=== PATIENT | male | born 1945 | race Caucasian/White ===

== ENCOUNTER 2017-09-11 15:58 | Inpatient (IN) | payer MEDICARE, MEDICAID ==
[~2017-09-11] VITALS: Ht 182.9 cm; Wt 82.6 kg
[2017-09-11 17:25] LABS: BASOPHILS % 1.1 % (0.0-2.0); EOSINOPHILS % 4.3 % (0.0-5.0); LYMPHOCYTES % 15.5 % (20.0-50.0); MEAN CORPUSCULAR HEMOGLOBIN 30.5 pg (28.0-32.0); MEAN PLATELET VOLUME 7.6 fl (7.4-10.4); MONOCYTES % 8.7 % (2.0-8.0); NEUTROPHILS % 70.4 % (40.0-76.0); PLATELET 199 x1000/uL (130-400); RED BLOOD CELL COUNT 3.94 mill/uL (4.7-6.1); RED CELL DISTRIBUTION WIDTH 16.2 % (11.6-14.6)
[2017-09-11 17:30] LABS: INR 1.1; PROTHROMBIN TIME 11.4 sec (9.4-11.6)
[2017-09-11 17:39] LABS: TROPONIN I 0.03 ng/mL (0.00-0.04)
[2017-09-11] MEDS ORDERED: FUROSEMIDE 40MG/4ML VIAL IVP ONE (19:30)
[2017-09-11 22:00] VITALS: BP 183/78
[2017-09-11] MEDS: SODIUM CHLORIDE 0.9% INJ 3ML FLUSH IVF SCH (22:00)
[2017-09-11] MEDS ORDERED: ONDANSETRON HCL 4MG/2ML VIAL IV PRN (22:15)
[2017-09-11] MEDS ORDERED: MAGNESIUM/ALUMINUM HYDROXIDE/SIMETHICONE 30ML UDC PO PRN (22:15)
[2017-09-11] MEDS ORDERED: IPRATROPIUM/ALBUTEROL 0.5-3(2.5)MG/3ML NEB INH PRN (22:15)
[2017-09-11] MEDS ORDERED: CLONIDINE 0.1MG TABLET PO PRN (22:15)
[2017-09-11] MEDS ORDERED: DIPHENHYDRAMINE 50MG/ML VIAL IV PRN (22:15)
[2017-09-11] MEDS ORDERED: ACETAMINOPHEN 325MG TABLET PO PRN (22:15)
[2017-09-11 22:30] VITALS: BP 138/78
[2017-09-11] MEDS ORDERED: HYDRALAZINE 20MG/ML VIAL IV PRN (22:30)
[2017-09-11] MEDS ORDERED: DEXTROSE 50% WATER 50ML SYRINGE IV PRN (22:30)
[2017-09-12] VITALS (10 sets, daily range): BP systolic 130–173; BP diastolic 58–80
[2017-09-12] MEDS: NITROGLYCERIN OINT 1GM/INCH UDPKT TD SCH ×4 (00:13→21:36)
[2017-09-12] MEDS: SODIUM CHLORIDE 0.9% INJ 3ML FLUSH IVF SCH ×3 (06:23→21:35)
[2017-09-12] MEDS: BLOOD SUGAR DIAGNOSTIC STRIP TEST SCH ×4 (06:29→21:35)
[2017-09-12 06:40] LABS: BASOPHILS % 1.2 % (0.0-2.0); HEMATOCRIT. 31.3 % (42.0-52.0); HEMOGLOBIN. 10.8 g/dL (14.0-18.0); LYMPHOCYTES % 17.5 % (20.0-50.0); MEAN CORPUSCULAR HEMOGLOBIN 30.9 pg (28.0-32.0); MEAN CORPUSCULAR VOLUME 89.3 fL (80.0-94.0); MONOCYTES % 11.4 % (2.0-8.0); NEUTROPHILS % 65.9 % (40.0-76.0); PLATELET 178 x1000/uL (130-400); RED CELL DISTRIBUTION WIDTH 16.1 % (11.6-14.6)
[2017-09-12] MEDS: INSULIN LISPRO 100 UNITS/ML SUBCUT SCH ×4 (07:50→21:00)
[2017-09-12] MEDS: ENOXAPARIN 30MG/0.3ML SYR SUBCUT SCH (08:40)
[2017-09-12 08:42] LABS: CARBON DIOXIDE 30 mEq/L (21-32); CHLORIDE 95 mEq/L (98-107); PHOSPHORUS 4.5 mg/dL (2.5-4.9)
[2017-09-12] MEDS: FOLIC ACID/VITAMIN B COMP W-C TABLET PO SCH (08:57)
[2017-09-12] MEDS: CARVEDILOL 12.5MG TABLET PO SCH ×2 (08:59→21:35)
[2017-09-12] MEDS: LOSARTAN POTASSIUM 100 MG TABLET PO SCH (08:59)
[2017-09-12] MEDS ORDERED: ASPIRIN 81MG TABLET PO SCH (09:00)
[2017-09-12] MEDS ORDERED: IODIXANOL 320MG/ML 100 ML BOTTLE IV ONE (10:49)
[2017-09-12] MEDS ORDERED: LIDOCAINE HCL 1% 20ML VIAL (Pyxis) INJ ONE (10:50)
[2017-09-12] MEDS ORDERED: FENTANYL CITRATE/PF 50MCG/ML 2ML VIAL ONE (11:09)
[2017-09-12] MEDS ORDERED: MIDAZOLAM HCL 2 MG/2 ML VIAL ONE (11:09)
[2017-09-12] MEDS ORDERED: ASPIRIN/SOD BICARB/CITRIC ACID 324MG TAB EFF ONE (11:11)
[2017-09-12] MEDS ORDERED: MORPHINE SULFATE 4 MG/ML CPJ (NOT FOR IM USE) IV PRN (11:45)
[2017-09-12] MEDS ORDERED: ONDANSETRON HCL 4MG/2ML VIAL IV PRN (11:45)
[2017-09-12] MEDS ORDERED: ATROPINE SULFATE 1MG/10ML SYR IV PRN (11:45)
[2017-09-12] MEDS ORDERED: ACETAMINOPHEN 325MG TABLET PO PRN (11:45)
[2017-09-12] MEDS ORDERED: HEPARIN SODIUM 1,000 UNIT/1ML VIAL IV ONE (12:18)
[2017-09-12] MEDS ORDERED: NICARDIPINE 100MCG/ML 10ML VIAL (CATH LAB) IV ONE (12:18)
[2017-09-12] MEDS ORDERED: NITROGLYCERIN 50MCG/ML 10ML VIAL (CATH LAB) IV ONE (12:18)
[2017-09-12] MEDS: CALCIUM ACETATE 667MG CAPSULE PO SCH ×2 (12:50→17:20)
[2017-09-12] MEDS ORDERED: LOPERAMIDE HCL 2MG CAPSULE PO NR (20:45)
[2017-09-12] MEDS ORDERED: ATORVASTATIN CALCIUM 40MG TABLET PO SCH (21:00)
[2017-09-12] MEDS: TAMSULOSIN HCL 0.4MG SR CAPSULE PO SCH (21:35)
[2017-09-13] VITALS: BP 154/52
[2017-09-13 04:00] VITALS: BP 160/50
[2017-09-13] MEDS: SODIUM CHLORIDE 0.9% INJ 3ML FLUSH IVF SCH ×3 (06:45→21:36)
[2017-09-13] MEDS: NITROGLYCERIN OINT 1GM/INCH UDPKT TD SCH ×3 (06:45→21:36)
[2017-09-13] MEDS: BLOOD SUGAR DIAGNOSTIC STRIP TEST SCH ×4 (06:46→21:38)
[2017-09-13 07:12] LABS: EOSINOPHILS % 4.5 % (0.0-5.0); HEMATOCRIT. 30.1 % (42.0-52.0); HEMOGLOBIN. 10.3 g/dL (14.0-18.0); LYMPHOCYTES % 18.4 % (20.0-50.0); MEAN CORPUSCULAR HEMOGLOBIN 30.3 pg (28.0-32.0); MEAN CORPUSCULAR VOLUME 88.7 fL (80.0-94.0); MEAN PLATELET VOLUME 8.2 fl (7.4-10.4); MONOCYTES % 11.1 % (2.0-8.0); PLATELET 158 x1000/uL (130-400); RED BLOOD CELL COUNT 3.39 mill/uL (4.7-6.1); RED CELL DISTRIBUTION WIDTH 16.1 % (11.6-14.6)
[2017-09-13 07:42] LABS: TROPONIN I 0.04 ng/mL (0.00-0.04)
[2017-09-13] MEDS: INSULIN LISPRO 100 UNITS/ML SUBCUT SCH ×4 (07:50→21:35)
[2017-09-13 08:00] VITALS: BP 130/66
[2017-09-13] MEDS: ENOXAPARIN 30MG/0.3ML SYR SUBCUT SCH (09:00)
[2017-09-13] MEDS: CARVEDILOL 6.25 MG TABLET PO SCH ×2 (09:00→21:37)
[2017-09-13] MEDS: ASPIRIN 81MG EC TABLET PO SCH (09:10)
[2017-09-13] MEDS: FOLIC ACID/VITAMIN B COMP W-C TABLET PO SCH (09:10)
[2017-09-13] MEDS: CALCIUM ACETATE 667MG CAPSULE PO SCH ×3 (09:11→18:11)
[2017-09-13] MEDS: LOSARTAN POTASSIUM 100 MG TABLET PO SCH (09:12)
[2017-09-13] MEDS: OMEPRAZOLE 20MG CAPSULE EXTENDED RELEASE PO SCH (09:14)
[2017-09-13 12:00] VITALS: BP 128/64
[2017-09-13 16:00] VITALS: BP 156/78
[2017-09-13 20:00] VITALS: BP_SYST 160; BP_SYST 163; BP_DIAS 80; BP_DIAS 91
[2017-09-13] MEDS ORDERED: ATORVASTATIN CALCIUM 40MG TABLET PO SCH (21:00)
[2017-09-13] MEDS ORDERED: NIFEDIPINE XL 30MG TAB PO SCH (21:00)
[2017-09-13] MEDS: TAMSULOSIN HCL 0.4MG SR CAPSULE PO SCH (21:38)
[2017-09-14] VITALS: BP 138/57
[2017-09-14 04:00] VITALS: BP 152/66
[2017-09-14] MEDS: OMEPRAZOLE 20MG CAPSULE EXTENDED RELEASE PO SCH (06:03)
[2017-09-14] MEDS: NITROGLYCERIN OINT 1GM/INCH UDPKT TD SCH (06:04)
[2017-09-14] MEDS: SODIUM CHLORIDE 0.9% INJ 3ML FLUSH IVF SCH ×2 (06:04→12:31)
[2017-09-14 06:26] LABS: BASOPHILS % 0.8 % (0.0-2.0); EOSINOPHILS % 5.2 % (0.0-5.0); HEMATOCRIT. 31.1 % (42.0-52.0); HEMOGLOBIN. 10.6 g/dL (14.0-18.0); LYMPHOCYTES % 15.4 % (20.0-50.0); MEAN CORPUSCULAR HEMOGLOBIN 30.2 pg (28.0-32.0); MEAN CORPUSCULAR VOLUME 88.6 fL (80.0-94.0); MONOCYTES % 11.1 % (2.0-8.0); NEUTROPHILS % 67.5 % (40.0-76.0); PLATELET 157 x1000/uL (130-400); RED BLOOD CELL COUNT 3.51 mill/uL (4.7-6.1); RED CELL DISTRIBUTION WIDTH 15.9 % (11.6-14.6)
[2017-09-14] MEDS: BLOOD SUGAR DIAGNOSTIC STRIP TEST SCH ×2 (06:44→12:04)
[2017-09-14] MEDS: INSULIN LISPRO 100 UNITS/ML SUBCUT SCH ×2 (07:50→12:24)
[2017-09-14 08:00] VITALS: BP 126/52
[2017-09-14] MEDS ORDERED: CELECOXIB 200MG CAPSULE PO NR (08:30)
[2017-09-14] MEDS: ASPIRIN 81MG EC TABLET PO SCH (08:46)
[2017-09-14] MEDS: LOSARTAN POTASSIUM 100 MG TABLET PO SCH (08:46)
[2017-09-14] MEDS: FOLIC ACID/VITAMIN B COMP W-C TABLET PO SCH (08:46)
[2017-09-14] MEDS: CALCIUM ACETATE 667MG CAPSULE PO SCH ×2 (08:46→12:23)
[2017-09-14] MEDS: ENOXAPARIN 30MG/0.3ML SYR SUBCUT SCH (08:47)
[2017-09-14] MEDS ORDERED: CARVEDILOL 3.125 MG TABLET PO SCH (09:00)
[2017-09-14] MEDS ORDERED: GLIPIZIDE XL 2.5MG TABLET PO SCH (09:00)
[2017-09-14] MEDS ORDERED: MECLIZINE 25MG TABLET PO PRN (11:30)
[2017-09-14 13:19] VITALS: BP 125/52
[2017-09-14] MEDS ORDERED: NIFEDIPINE XL 60MG TAB PO SCH (21:00)
== END 2017-09-14 16:00 | disposition home or self-care (01) | DRG 286 ==
LOC: ER 16:18 → 6WST 18:56 → ENRESERV 19:46
PROVIDERS: ADMIT Internal Medicine; ATTEND Internal Medicine
PROC: B2111ZZ Fluoroscopy of Multiple Coronary Arteries using Low Osmolar Contrast (ICD-10-PCS; 2017-09-12)
PROC: B2151ZZ Fluoroscopy of Left Heart using Low Osmolar Contrast (ICD-10-PCS; 2017-09-12)
PROC: 4A023N7 Measurement of Cardiac Sampling and Pressure, Left Heart, Percutaneous Approach (ICD-10-PCS; principal; 2017-09-12 11:00)
DX: I25.10 Atherosclerotic heart disease of native coronary artery without angina pectoris (principal); I50.43 Acute on chronic combined systolic (congestive) and diastolic (congestive) heart failure; I13.2 Hypertensive heart and chronic kidney disease with heart failure and with stage 5 chronic kidney disease, or end stage renal disease; E46 Unspecified protein-calorie malnutrition; E11.22 Type 2 diabetes mellitus with diabetic chronic kidney disease; E87.1 Hypo-osmolality and hyponatremia; I47.1 Supraventricular tachycardia; E11.319 Type 2 diabetes mellitus with unspecified diabetic retinopathy without macular edema; E11.51 Type 2 diabetes mellitus with diabetic peripheral angiopathy without gangrene; D63.8 Anemia in other chronic diseases classified elsewhere; E78.00 Pure hypercholesterolemia, unspecified; E83.39 Other disorders of phosphorus metabolism; I45.81 Long QT syndrome; K21.9 Gastro-esophageal reflux disease without esophagitis; N40.0 Benign prostatic hyperplasia without lower urinary tract symptoms; Z79.82 Long term (current) use of aspirin; Z99.2 Dependence on renal dialysis; Z98.49 Cataract extraction status, unspecified eye; Z68.24 Body mass index [BMI] 24.0-24.9, adult
CPT/HCPCS: 36415; 71010; 71020; 80048; 80053; 80061; 82962; 83036; 83735; 83880; 84100; 84484; 85025; 85379; 85610; 93005; 93306; 93458; 96374; 99285; C1769; C1893; J1644; J1650; J1815; J1940; J2250; J3010; J3490; J7030; J8597; Q9967

== ENCOUNTER 2018-03-19 18:32 | Inpatient (IN) | payer MEDICARE, MEDICAID ==
[~2018-03-19] VITALS: Ht 182.9 cm; Wt 75.8 kg
[2018-03-19 19:22] LABS: BASOPHILS % 1.2 % (0.0-2.0); EOSINOPHILS % 2.3 % (0.0-5.0); HEMATOCRIT. 31.1 % (42.0-52.0); HEMOGLOBIN. 10.5 g/dL (14.0-18.0); MEAN CORPUSCULAR HEMOGLOBIN 29.1 pg (28.0-32.0); MEAN CORPUSCULAR VOLUME 86.1 fL (80.0-94.0); MEAN PLATELET VOLUME 7.6 fl (7.4-10.4); MONOCYTES % 10.2 % (2.0-8.0); NEUTROPHILS % 76.3 % (40.0-76.0); PLATELET 246 x1000/uL (130-400); RED BLOOD CELL COUNT 3.62 mill/uL (4.7-6.1); RED CELL DISTRIBUTION WIDTH 15.8 % (11.6-14.6)
[2018-03-19 19:27] LABS: CHLORIDE 87 mEq/L (98-107)
[2018-03-19 19:28] LABS: INR 1.2; PROTHROMBIN TIME 12.1 sec (9.4-11.6)
[2018-03-19 19:31] LABS: AMMONIA < 10 uMol/L (<32)
[2018-03-19] MEDS ORDERED: MAGNESIUM/ALUMINUM HYDROXIDE/SIMETHICONE 30ML UDC PO PRN (23:45)
[2018-03-19] MEDS ORDERED: CLONIDINE 0.1MG TABLET PO PRN (23:45)
[2018-03-19] MEDS ORDERED: HYDROCODONE/ACETAMINOPHEN 5/325MG TABLET PO PRN (23:45)
[2018-03-19] MEDS ORDERED: ONDANSETRON HCL 4MG/2ML VIAL IV PRN (23:45)
[2018-03-19] MEDS ORDERED: DOCUSATE SODIUM 100MG CAPSULE PO PRN (23:45)
[2018-03-19] MEDS ORDERED: IPRATROPIUM/ALBUTEROL 0.5-3(2.5)MG/3ML NEB INH PRN (23:45)
[2018-03-19] MEDS ORDERED: ACETAMINOPHEN 650MG/20.3ML UDC GT PRN (23:45)
[2018-03-20 08:26] LABS: EOSINOPHILS % 2.6 % (0.0-5.0); HEMATOCRIT. 31.2 % (42.0-52.0); HEMOGLOBIN. 10.5 g/dL (14.0-18.0); LYMPHOCYTES % 14.3 % (20.0-50.0); MEAN CORPUSCULAR HEMOGLOBIN 29.2 pg (28.0-32.0); MEAN CORPUSCULAR VOLUME 86.5 fL (80.0-94.0); MEAN PLATELET VOLUME 7.6 fl (7.4-10.4); MONOCYTES % 14.3 % (2.0-8.0); NEUTROPHILS % 67.8 % (40.0-76.0); PLATELET 215 x1000/uL (130-400); RED CELL DISTRIBUTION WIDTH 16.1 % (11.6-14.6)
[2018-03-20] MEDS ORDERED: LISINOPRIL 40MG TABLET PO SCH (09:30)
[2018-03-20] MEDS ORDERED: DEXTROSE 50% WATER 50ML SYRINGE IV PRN (09:30)
[2018-03-20 10:00] VITALS: BP 180/84
[2018-03-20 10:30] VITALS: BP 182/84
[2018-03-20 11:11] VITALS: BP 171/60
[2018-03-20] MEDS ORDERED: POTASSIUM CHLORIDE 20MEQ TABLET SR PO SCH (12:30)
[2018-03-20] MEDS: INSULIN LISPRO 100 UNITS/ML SUBCUT SCH ×3 (12:39→21:00)
[2018-03-20] MEDS: ASPIRIN 81MG TABLET PO SCH (12:42)
[2018-03-20] MEDS: CARVEDILOL 12.5MG TABLET PO SCH ×2 (12:43→21:00)
[2018-03-20] MEDS: FOLIC ACID/VITAMIN B COMP W-C TABLET PO SCH (12:43)
[2018-03-20] MEDS: BLOOD SUGAR DIAGNOSTIC STRIP TEST SCH ×3 (12:46→21:00)
[2018-03-20] MEDS: CALCIUM ACETATE 667MG CAPSULE PO SCH ×2 (12:50→19:17)
[2018-03-20 15:23] LABS: CREATINE KINASE MB FRACTION 3.4 ng/mL (0.5-3.6)
[2018-03-20 16:00] VITALS: BP 106/58
[2018-03-20 20:00] VITALS: BP_SYST 101; BP_SYST 123; BP_SYST 95; BP_DIAS 40; BP_DIAS 45; BP_DIAS 52
[2018-03-20] MEDS: TAMSULOSIN HCL 0.4MG SR CAPSULE PO SCH (21:00)
[2018-03-20] MEDS: ATORVASTATIN CALCIUM 40MG TABLET PO SCH (22:14)
[2018-03-21] VITALS (7 sets, daily range): BP systolic 122–154; BP diastolic 49–77
[2018-03-21] MEDS: BLOOD SUGAR DIAGNOSTIC STRIP TEST SCH ×4 (07:19→20:56)
[2018-03-21 08:16] LABS: EOSINOPHILS % 3.1 % (0.0-5.0); HEMATOCRIT. 29.4 % (42.0-52.0); HEMOGLOBIN. 9.9 g/dL (14.0-18.0); LYMPHOCYTES % 17.4 % (20.0-50.0); MEAN CORPUSCULAR HEMOGLOBIN 28.9 pg (28.0-32.0); MEAN PLATELET VOLUME 8.1 fl (7.4-10.4); MONOCYTES % 11.5 % (2.0-8.0); PLATELET 185 x1000/uL (130-400); RED BLOOD CELL COUNT 3.42 mill/uL (4.7-6.1); RED CELL DISTRIBUTION WIDTH 16.2 % (11.6-14.6)
[2018-03-21 08:20] LABS: PHOSPHORUS 5.7 mg/dL (2.5-4.9)
[2018-03-21] MEDS ORDERED: LOSARTAN POTASSIUM 100 MG TABLET PO SCH (09:00)
[2018-03-21] MEDS: CARVEDILOL 12.5MG TABLET PO SCH (09:00)
[2018-03-21] MEDS: CALCIUM ACETATE 667MG CAPSULE PO SCH ×2 (09:01→18:15)
[2018-03-21] MEDS: ASPIRIN 81MG TABLET PO SCH (09:01)
[2018-03-21] MEDS: INSULIN LISPRO 100 UNITS/ML SUBCUT SCH ×4 (10:10→21:28)
[2018-03-21] MEDS ORDERED: MAGNESIUM/ALUMINUM HYDROXIDE/SIMETHICONE 30ML UDC PO SCH (11:00)
[2018-03-21] MEDS: FAMOTIDINE 20MG TABLET PO SCH (12:10)
[2018-03-21] MEDS: FOLIC ACID/VITAMIN B COMP W-C TABLET PO SCH (12:10)
[2018-03-21] MEDS ORDERED: MECLIZINE 25MG TABLET PO PRN (12:45)
[2018-03-21] MEDS ORDERED: EPOETIN ALFA 4000UNITS/ML VIAL SUBCUT SCH (21:00)
[2018-03-21] MEDS: ATORVASTATIN CALCIUM 40MG TABLET PO SCH (21:27)
[2018-03-21] MEDS: CARVEDILOL 6.25 MG TABLET PO SCH (21:27)
[2018-03-21] MEDS: TAMSULOSIN HCL 0.4MG SR CAPSULE PO SCH (21:27)
[2018-03-22] VITALS: BP 126/51
[2018-03-22 04:32] VITALS: BP 139/58
[2018-03-22] MEDS: BLOOD SUGAR DIAGNOSTIC STRIP TEST SCH ×4 (05:55→21:21)
[2018-03-22 07:03] LABS: BASOPHILS % 1.2 % (0.0-2.0); EOSINOPHILS % 3.3 % (0.0-5.0); HEMATOCRIT. 27.5 % (42.0-52.0); HEMOGLOBIN. 9.7 g/dL (14.0-18.0); LYMPHOCYTES % 17.1 % (20.0-50.0); MEAN CORPUSCULAR VOLUME 85.3 fL (80.0-94.0); MONOCYTES % 10.3 % (2.0-8.0); NEUTROPHILS % 68.1 % (40.0-76.0); PLATELET 181 x1000/uL (130-400); RED BLOOD CELL COUNT 3.22 mill/uL (4.7-6.1); RED CELL DISTRIBUTION WIDTH 15.8 % (11.6-14.6)
[2018-03-22 07:30] LABS: PHOSPHORUS 5.8 mg/dL (2.5-4.9)
[2018-03-22 07:57] VITALS: BP_SYST 135; BP_SYST 152; BP_DIAS 52; BP_DIAS 63
[2018-03-22] MEDS: CALCIUM ACETATE 667MG CAPSULE PO SCH ×3 (08:11→18:08)
[2018-03-22] MEDS: INSULIN LISPRO 100 UNITS/ML SUBCUT SCH ×4 (08:14→21:56)
[2018-03-22] MEDS: FOLIC ACID/VITAMIN B COMP W-C TABLET PO SCH (08:23)
[2018-03-22] MEDS: ASPIRIN 81MG TABLET PO SCH (08:23)
[2018-03-22] MEDS: FAMOTIDINE 20MG TABLET PO SCH (08:23)
[2018-03-22] MEDS: LOSARTAN POTASSIUM 50 MG TABLET PO SCH (08:23)
[2018-03-22] MEDS: CARVEDILOL 6.25 MG TABLET PO SCH ×2 (08:24→21:00)
[2018-03-22 12:05] VITALS: BP 160/59
[2018-03-22 16:00] VITALS: BP 133/57
[2018-03-22 20:33] VITALS: BP_SYST 149; BP_SYST 157; BP_SYST 159; BP_DIAS 60; BP_DIAS 61; BP_DIAS 71
[2018-03-22] MEDS: TAMSULOSIN HCL 0.4MG SR CAPSULE PO SCH (21:55)
[2018-03-22] MEDS: ATORVASTATIN CALCIUM 40MG TABLET PO SCH (21:55)
[2018-03-23] VITALS (7 sets, daily range): BP systolic 143–162; BP diastolic 59–93
[2018-03-23] MEDS: BLOOD SUGAR DIAGNOSTIC STRIP TEST SCH ×2 (06:17→12:09)
[2018-03-23] MEDS: INSULIN LISPRO 100 UNITS/ML SUBCUT SCH ×2 (06:23→12:09)
[2018-03-23 06:37] LABS: BASOPHILS % 1.1 % (0.0-2.0); EOSINOPHILS % 3.3 % (0.0-5.0); HEMATOCRIT. 30.7 % (42.0-52.0); HEMOGLOBIN. 10.4 g/dL (14.0-18.0); LYMPHOCYTES % 15.2 % (20.0-50.0); MEAN CORPUSCULAR HEMOGLOBIN 28.8 pg (28.0-32.0); MEAN CORPUSCULAR VOLUME 85.2 fL (80.0-94.0); MEAN PLATELET VOLUME 8.2 fl (7.4-10.4); MONOCYTES % 8.9 % (2.0-8.0); NEUTROPHILS % 71.5 % (40.0-76.0); PLATELET 204 x1000/uL (130-400); RED BLOOD CELL COUNT 3.61 mill/uL (4.7-6.1); RED CELL DISTRIBUTION WIDTH 16.1 % (11.6-14.6)
[2018-03-23] MEDS: LOSARTAN POTASSIUM 50 MG TABLET PO SCH (08:09)
[2018-03-23] MEDS: CARVEDILOL 6.25 MG TABLET PO SCH (08:09)
[2018-03-23 08:17] LABS: PHOSPHORUS 5.9 mg/dL (2.5-4.9)
[2018-03-23] MEDS: CALCIUM ACETATE 667MG CAPSULE PO SCH ×2 (08:17→12:09)
[2018-03-23] MEDS: ASPIRIN 81MG TABLET PO SCH (08:17)
[2018-03-23] MEDS: FAMOTIDINE 20MG TABLET PO SCH (08:17)
[2018-03-23] MEDS: FOLIC ACID/VITAMIN B COMP W-C TABLET PO SCH (08:17)
[2018-03-24] MEDS ORDERED: LOSARTAN POTASSIUM 50 MG TABLET PO SCH (09:00)
== END 2018-03-23 15:55 | DRG 73 ==
LOC: ER 18:32 → 6WST 03-20 00:13 → ENRESERV 03-20 07:04
PROVIDERS: ADMIT Internal Medicine; ATTEND Internal Medicine
PROC: 5A1D70Z Performance of Urinary Filtration, Intermittent, Less than 6 Hours Per Day (ICD-10-PCS; principal; 2018-03-21)
PROC: 5A1D70Z Performance of Urinary Filtration, Intermittent, Less than 6 Hours Per Day (ICD-10-PCS; 2018-03-23)
DX: G90.8 Other disorders of autonomic nervous system (principal); N18.6 End stage renal disease; J90 Pleural effusion, not elsewhere classified; E87.3 Alkalosis; E44.1 Mild protein-calorie malnutrition; E87.1 Hypo-osmolality and hyponatremia; I12.0 Hypertensive chronic kidney disease with stage 5 chronic kidney disease or end stage renal disease; N25.81 Secondary hyperparathyroidism of renal origin; D63.1 Anemia in chronic kidney disease; E11.22 Type 2 diabetes mellitus with diabetic chronic kidney disease; E11.51 Type 2 diabetes mellitus with diabetic peripheral angiopathy without gangrene; E87.8 Other disorders of electrolyte and fluid balance, not elsewhere classified; E11.621 Type 2 diabetes mellitus with foot ulcer; E87.6 Hypokalemia; L97.519 Non-pressure chronic ulcer of other part of right foot with unspecified severity; E78.5 Hyperlipidemia, unspecified; E83.39 Other disorders of phosphorus metabolism; Z79.899 Other long term (current) drug therapy; Z99.2 Dependence on renal dialysis; Z88.8 Allergy status to other drugs, medicaments and biological substances; Z68.22 Body mass index [BMI] 22.0-22.9, adult
CPT/HCPCS: 36415; 70450; 70551; 71045; 80048; 80053; 80061; 82140; 82533; 82550; 82553; 82962; 83036; 83735; 84100; 84443; 84484; 85025; 85610; 93005; 93306; 93880; 93970; 97162; 97166; 97530; 99285; J0885; J1815; J7030; J8597